=== PATIENT | female | born 1945 | race Caucasian/White ===

== ENCOUNTER 2024-08-14 18:43 | Emergency (ER) | payer SELFPAY ==
[~2024-08-14] VITALS: Ht 154.9 cm; Wt 55.0 kg
[2024-08-14 18:46] VITALS: TEMP 98.4; O2SAT 99
[2024-08-14] MEDS ORDERED: BACITRACIN ZINC OINT UDPKT TOP ONE (20:30)
[2024-08-14] MEDS: TETANUS, DIPHTHERIA, PERTUSSIS VAC/PF 0.5ML (>10YR OLD) IM ONE (20:52)
[2024-08-14] MEDS: LIDOCAINE HCL/PF 1% 10 MG/ML 5ML VIAL INFIL ONE (20:52)
[2024-08-14] MEDS ORDERED: BO1 TP (21:08)
[2024-08-14 21:21] VITALS: BP 139/67; PULSE 83; RESP 16; O2SAT 99
== END 2024-08-14 21:22 | disposition home or self-care (01) ==
LOC: ER 18:43
DX: S51.811A Laceration without foreign body of right forearm, initial encounter (principal); E78.00 Pure hypercholesterolemia, unspecified; W26.8XXA Contact with other sharp object(s), not elsewhere classified, initial encounter; Y93.89 Activity, other specified; Y92.89 Other specified places as the place of occurrence of the external cause; Y99.8 Other external cause status
CPT/HCPCS: 90715; 90471; 99283; J3490; Z7610 ×4